=== PATIENT | female | born 1985 | race Hispanic/Latino ===

== ENCOUNTER 2018-04-11 20:19 | Emergency (ER) | payer OTHER, SELFPAY ==
[2018-04-11 20:32] VITALS: BP 116/82; PULSE 68; RESP 18; TEMP 36.2; O2SAT 100; BMI 22.3
--- NOTE | 2018-04-11 21:32 | ED_ITS ---
HPI - Chest Pain General Chief Complaint: Chest Pain Stated Complaint: CHEST PAINS, ANXIETY Time Seen by Provider: 04/11/18 21:11 Source: patient Mode of arrival: ambulatory Limitations: no limitations History of Present Illness HPI narrative: Patient is a 32-year-old female presenting with left-sided chest pain. She and her have been arguing a lot over the past couple of days. She noticed something yesterday. Today she picked up her 6-month-old son who she picked up a little bit funny she did not have pain immediately however they were arguing again and she started to notice pain. Pain is definitely worse when she moves her left arm. She has no shortness of breath she had no cramping in her hands no nausea or diaphoresis. The pain has improved. MD complaint: chest pain Duration: intermittent Relieving factors: remaining still Exacerbating factors: movement Related Data Home Medications Medication Instructions Recorded Confirmed No Known Home Medications 04/11/18 04/11/18 Allergies Allergy/AdvReac Type Severity Reaction Status Date / Time No Known Allergies Allergy Uncoded 04/11/18 20:35 Review of Systems Review of Systems All systems reviewed & are unremarkable except as noted in HPI and below Constitutional Denies chills, Denies fever(s), Denies lethargy and Denies weakness Cardiovascular Reports as per HPI, Denies dyspnea and Denies dyspnea on exertion Respiratory Denies cough, Denies dyspnea, Denies dyspnea on exertion and Denies wheezing Gastrointestinal Gastrointestinal: Denies abdominal pain, Denies change in bowel habits, Denies diarrhea, Denies nausea and Denies vomiting Musculoskeletal Denies back pain, Denies muscle weakness, Denies numbness and Denies tingling Neurologic Denies numbness, Denies tingling and Denies weakness Allergic/Immunologic Denies wheezing REPLACED BY [facility] Medical History Multiple sclerosis (Acute) Social History Smoking Status: Never smoker Exam Initial Vital Signs Initial Vital Signs: Vital Signs Temperature 97.2 F L 04/11/18 20:32 Pulse Rate 68 04/11/18 20:32 Respiratory Rate 18 04/11/18 20:32 Blood Pressure 116/82 H 04/11/18 20:32 Pulse Oximetry 100 04/11/18 20:32 Const General: cooperative and well developed Nutritional Appearance: well nourished Orientation: alert, awake, oriented x3 and not confused Chest Chest: normal inspection of the chest Resp Effort & Inspection: normal respiratory effort, able to speak in complete sentences, no respiratory distress and no use of accessory muscles Auscultation: clear to auscultation bilaterally, no rales, no rhonchi and no wheezes Cardio Rate: regular rate Rhythm: regular rhythm Heart Sounds: no click, no gallops, no murmurs and no rubs Pulses: normal peripheral pulses Other: Pain is reproduced with left arm movement Skin General: no rashes or lesions noted, No jaundice and No petechiae Neuro General: alert, oriented x3, gait normal and no focal motor deficits Speech: speech normal Course Vital Signs - 8 hr 04/11/18 20:32 04/11/18 21:36 Temperature 97.2 F L Pulse Rate 68 64 Respiratory Rate 18 13 Blood Pressure 116/82 H Blood Pressure [Right Arm] 113/79 Pulse Oximetry 100 99 MDM - Chest Pain ECG Data Attestation: I personally reviewed and interpreted this ECG as follows: Prior ECG tracings: available for review Interpretation: Normal sinus rhythm rate [address]-T changes similar to previous EKG MDM Narrative Medical decision making narrative: Patient is doing much better. We did discuss a chest x-ray for more of a workup however she declines at this time her rather just go home. She is not short of breath no trauma or injury. She says she feels safe going home. Discharge Plan Departure Patient Disposition: Home, Self-Care Clinical Impression: Atypical chest pain Discharge Date/Time: 04/11/18 21:44 Interventions: ED Discharge Assessment Last Done: 04/11/18 21:43 Instructions: DI for Atypical Chest Pain Activity Restrictions/Additional Instructions: *You have been diagnosed with atypical chest pain *What to do: Rest *Continue to take medications as directed *Follow up with your primary care provider in 2-3 days *Return to ER if you should have any new, worsening or concerning symptoms Prescriptions: No Action No Known Home Medications RF: 0 Referrals: [facility] [Outside] Provider,Conversion [Non-Staff] -
[2018-04-11 21:36] VITALS: BP 113/79; PULSE 64; RESP 13; O2SAT 99
== END 2018-04-11 21:44 | disposition home or self-care (01) ==
PROVIDERS: Emergency Provider Emergency Medicine
DX: R07.89 Other chest pain (principal)
CPT/HCPCS: 93005; 93041; 99283

== ENCOUNTER 2019-04-15 13:26 | Emergency (ER) | payer OTHER, SELFPAY ==
--- NOTE | 2019-04-15 13:27 | PC.NURSE ---
pt insist to use bathroom prior to triage, and nurse evaluation.
--- NOTE | 2019-04-15 13:33 | DI.RAD.S_ITS ---
PROCEDURE: XR CHEST 2V INDICATIONS: chest pain TECHNIQUE: 2 views of the chest were acquired. COMPARISON: [facility], , CHEST 2 VIEW, 12/26/2017, 20:20. FINDINGS: Surgical changes and devices: None. Lungs and pleura: Lungs are clear. No pleural effusions or pneumothorax. Mediastinum: Mediastinal contours are normal. Heart size is normal. Bones and chest wall: No suspicious bony abnormalities. Soft tissues appear unremarkable. IMPRESSION: No acute process. Dictated by: Elis Yusuf M.D. on 04/15/2019 at 14:09 Approved by: Elis Yusuf M.D. on 04/15/2019 at 14:09
[2019-04-15 13:34] VITALS: BP 104/70; PULSE 70; RESP 16; TEMP 37.2; O2SAT 100; BMI 20.6
[2019-04-15 14:03] LABS: Add Manual Diff / Slide Review NO; Basophils Absolute Auto 0 /uL (0-100); Basophils Percent Auto 0.7 % (0-2); Eosinophils Absolute Auto 200 /uL (0-450); Eosinophils Percent Auto 3.7 % (2-4); Hematocrit 40.8 % (36-46); Hemoglobin 14.2 g/dL (12.0-16.0); Lymphocytes Absolute Auto 2000 /uL (1100-4500); Lymphocytes Percent Auto 32.3 % (25-40); Mean Corpuscular HGB Conc 34.7 % (30-36); Mean Corpuscular Volume 89.4 fL (80-100); Monocytes Absolute Auto 500 /uL (0-900); Monocytes Percent Auto 8.1 % (3-14); Neutrophils Absolute Auto 3400 /uL (1500-7000); Neutrophils Percent Auto 55.2 % (50-75); Platelet Count 215 X10^3/uL (150-400); Red Blood Cell Count 4.56 X10^6/uL (4.0-5.2); Red Cell Distribution Width 12.9 % (11.6-14.8); White Blood Cell Count 6.1 X10^3/uL (4.5-11.0)
[2019-04-15 14:11] LABS: INR 1.1 (0.9-1.3); Prothrombin Time 12.3 SECONDS (10.1-12.7)
[2019-04-15 14:13] LABS: PTT Partial Thromboplastin Tim 35 SECONDS (26.4-36.2)
[2019-04-15 14:16] LABS: Alanine Aminotransferase 17 IU/L (9-52); Albumin 4.3 g/dL (3.5-5.0); Albumin Globulin Ratio 1.4 (1.0-2.8); Alkaline Phosphatase 64 U/L (38-126); Aspartate Aminotransferase 24 IU/L (14-36); Blood Urea Nitrogen 18 mg/dL (7-17); Calcium 9.1 mg/dL (8.4-10.2); Carbon Dioxide 28 mmol/L (22-32); Chloride 102 mmol/L (98-107); Creatine Kinase 57 U/L (30-135); Estimated Glomerular Filt Rate > 60.0 mL/min (>60); Globulin 3.1 g/dL (1.7-4.1); Glucose 82 mg/dL (70-100); HEMOLYSIS < 15 (0-50); Lipase 118 U/L (23-300); Potassium 3.2 mmol/L (3.4-5.1); Sodium 138 mmol/L (137-145); Total Protein 7.4 g/dL (6.3-8.2)
[2019-04-15 14:28] LABS: Troponin I < 0.012 ng/mL (0.01-0.034)
[2019-04-15 14:30] VITALS: BP 107/67; PULSE 69; RESP 15; O2SAT 100
[2019-04-15 15:00] VITALS: BP 108/66; PULSE 73; RESP 15; O2SAT 100
--- NOTE | 2019-04-15 15:18 | ED.CHESTPAIN ---
HPI - Chest Pain <Ayanna Macias PA-C - Last Filed: 04/15/19 20:56> General Chief Complaint: Chest Pain Stated Complaint: heart palps/sharp pains x30 minutes Time Seen by Provider: 04/15/19 15:09 Source: patient Mode of arrival: ambulatory Limitations: no limitations History of Present Illness HPI narrative: This 33-year-old female comes to ED due to heart palpitations earlier. She states that this started suddenly, where she felt 3 pounding beats, stopped for a few minutes, then 4 pounding beats. She states that this happened again an hour later, and happen 6 or 7 times, last she thinks right before EKG was done here. She states that she had a brief, stabbing episode of chest pain 3 days ago that resolved immediately. She has not had any other chest pain. She does not have dyspnea. She has not had any nausea or vomiting nor abdominal pain. She felt briefly dizzy before 1 of the episodes of palpitations, not others. She has not had any recent illness, cough or upper respiratory symptoms, or fever. She denies any urinary symptoms, bowel habit changes or possibility of . She states that she is feeling considerably better now and has not had recurrent symptoms. She does have a history of occasional panic attacks but states this felt much different Related Data Home Medications Medication Instructions Recorded Confirmed glatiramer [Glatopa] 04/15/19 Allergies Allergy/AdvReac Type Severity Reaction Status Date / Time No Known Drug Allergies Allergy Verified 04/15/19 13:34 Review of Systems <Ayanna Macias PA-C - Last Filed: 04/15/19 20:56> Review of Systems ROS Unobtainable: All systems reviewed & are unremarkable except as noted in HPI and below PFSH <Ayanna Macias PA-C - Last Filed: 04/15/19 20:56> Medical History (Updated 04/15/19 @ 15:46 by Ayanna Macias PA-C) History of panic attacks (Chronic) Multiple sclerosis (Chronic) Surgical History (Updated 04/15/19 @ 15:46 by Ayanna Macias PA-C) Status post LASIK surgery (Resolved) Status post breast augmentation (Resolved) Social History Smoking Status: Never smoker Social History Smoking Status: Never smoker Exam <Ayanna Macias PA-C - Last Filed: 04/15/19 20:56> Narrative Exam Narrative: GENERAL APPEARANCE: Patient sitting comfortably, in no distress. HEENT: PERRL, EOMI NECK/THYROID: Neck supple, no JVD. LUNGS: Clear to auscultation bilaterally. HEART: Regular rate and rhythm without murmur, normal S1, S2, no S3 or S4. Auscultated supine and sitting ABDOMEN: Soft, NT, ND, + BS x 4 quadrants EXTREMITIES: No cyanosis or edema NEUROLOGIC: Alert and oriented, normal speech, and coordination. Initial Vital Signs Initial Vital Signs: Vital Signs Temperature 99.0 F 04/15/19 13:34 Pulse Rate 70 04/15/19 13:34 Respiratory Rate 16 04/15/19 13:34 Blood Pressure 104/70 04/15/19 13:34 Pulse Oximetry 100 04/15/19 13:34 <Sanam Mills DO - Last Filed: 04/19/19 19:12> Initial Vital Signs Initial Vital Signs: Vital Signs Temperature 99.0 F 04/15/19 13:34 Pulse Rate 70 04/15/19 13:34 Respiratory Rate 16 04/15/19 13:34 Blood Pressure 104/70 04/15/19 13:34 Pulse Oximetry 100 04/15/19 13:34 Course <Ayanna Macias PA-C - Last Filed: 04/15/19 20:56> Additional Information: Patient's symptoms have resolved at the time of visit and she is feeling well. Advised return if any acutely worsening symptoms, follow-up with PCP this week for consideration of further cardiac evaluation/monitoring. Advised of slightly low potassium and she states she has not been eating as much produce as she usually does, will resume her usual diet and follow-up with PCP as well. I think this is unlikely to be causing her brief symptoms today. She is agreeable with plan Orders Ordered: ED Orders 04/15/19 13:33 XR chest 2V Stat EKG-12 Lead Stat 04/15/19 13:52 Complete Blood Count AUTO DIFF Stat Comprehensive Metabolic Panel Stat Lipase Stat Partial Thromboplastin Time Stat Prothrombin Time INR Stat Troponin & CK Cardiac Panel Stat Vital Signs - 8 hr 04/15/19 13:34 04/15/19 14:30 04/15/19 15:00 Temperature 99.0 F Pulse Rate 70 69 73 Respiratory Rate 16 15 15 Blood Pressure 104/70 Blood Pressure [Left Arm] 107/67 108/66 Pulse Oximetry 100 100 100 04/15/19 15:57 Temperature Pulse Rate 75 Respiratory Rate 22 Blood Pressure 107/75 Blood Pressure [Left Arm] Pulse Oximetry 98 <Sanam Mills DO - Last Filed: 04/19/19 19:12> Orders Ordered: ED Orders 04/15/19 13:33 XR chest 2V Stat EKG-12 Lead Stat 04/15/19 13:52 Complete Blood Count AUTO DIFF Stat Comprehensive Metabolic Panel Stat Lipase Stat Partial Thromboplastin Time Stat Prothrombin Time INR Stat Troponin & CK Cardiac Panel Stat Vital Signs - 8 hr 04/15/19 13:34 04/15/19 14:30 04/15/19 15:00 Temperature 99.0 F Pulse Rate 70 69 73 Respiratory Rate 16 15 15 Blood Pressure 104/70 Blood Pressure [Left Arm] 107/67 108/66 Pulse Oximetry 100 100 100 04/15/19 15:57 Temperature Pulse Rate 75 Respiratory Rate 22 Blood Pressure 107/75 Blood Pressure [Left Arm] Pulse Oximetry 98 MDM - Chest Pain <Ayanna Macias PA-C - Last Filed: 04/15/19 20:56> Lab Data Attestation: I reviewed the patient's lab results. Result diagrams: 04/15/19 13:52 04/15/19 13:52 Lab Results 04/15/19 04/15/19 04/15/19 Range/Units 13:52 13:52 13:52 WBC 6.1 (4.5-11.0) X10^3/uL RBC 4.56 (4.0-5.2) X10^6/uL Hgb 14.2 (12.0-16.0) g/dL Hct 40.8 (36-46) % MCV 89.4 (80-100) fL MCH 31.0 (26-34) PG MCHC 34.7 (30-36) % RDW 12.9 (11.6-14.8) % Plt Count 215 (150-400) X10^3/uL Neut % (Auto) 55.2 (50-75) % Lymph % (Auto) 32.3 (25-40) % [place] % (Auto) 8.1 (3-14) % Eos % (Auto) 3.7 (2-4) % Baso % (Auto) 0.7 (0-2) % Neut # (Auto) 3400 (9847-9412) /uL Lymph # (Auto) 2000 (0693-6504) /uL [place] # (Auto) 500 (0-900) /uL Eos # (Auto) 200 (0-450) /uL Baso # (Auto) 0 (0-100) /uL PT 12.3 (10.1-12.7) SECONDS INR 1.1 (0.9-1.3) APTT 35 (26.4-36.2) SECONDS Sodium 138 (137-145) mmol/L Potassium 3.2 L (3.4-5.1) mmol/L Chloride 102 (98-107) mmol/L Carbon Dioxide 28 (22-32) mmol/L BUN 18 H (7-17) mg/dL Creatinine 0.60 (0.52-1.04) mg/dL Estimated GFR > 60.0 (>60) mL/min BUN/Creatinine Ratio 30.0 H (6-22) Glucose 82 (70-100) mg/dL Calcium 9.1 (8.4-10.2) mg/dL Total Bilirubin 2.0 H (0.2-1.3) mg/dL AST 24 (14-36) IU/L ALT 17 (9-52) IU/L Alkaline Phosphatase 64 (38-126) U/L Total Creatine Kinase 57 (30-135) U/L CK-MB (CK-2) TNP CK-MB (CK-2) Rel Index TNP Troponin I < 0.012 (0.01-0.034) ng/mL Total Protein 7.4 (6.3-8.2) g/dL Albumin 4.3 (3.5-5.0) g/dL Globulin 3.1 (1.7-4.1) g/dL Albumin/Globulin Ratio 1.4 (1.0-2.8) Lipase 118 (23-300) U/L Imaging Data Chest x-ray: Radiologist's impression: [address] [address] XRay Report Signed Patient: Elsy Toro HMR#: [id number] : 1985Acct:[id number] Age/Sex: 33 / FDate of Service: 04/15/19 Loc: ED Accession Number: [id number] Procedure: XR chest 2V Ordering Provider: Sanam Mills D.O. PROCEDURE: XR CHEST 2V INDICATIONS: chest pain TECHNIQUE: 2 views of the chest were acquired. COMPARISON: [facility], , CHEST 2 VIEW, 12/26/2017, 20:20. FINDINGS: Surgical changes and devices: None. Lungs and pleura: Lungs are clear. No pleural effusions or pneumothorax. Mediastinum: Mediastinal contours are normal. Heart size is normal. Bones and chest wall: No suspicious bony abnormalities. Soft tissues appear unremarkable. IMPRESSION: No acute process. Dictated by: Elis Yusuf M.D. on 04/15/2019 at 14:09 Approved by: Elis Yusuf M.D. on 04/15/2019 at 14:09 ECG Data Attestation: I personally reviewed and interpreted this ECG as follows: (Normal sinus rhythm, rate 70, normal axis) Prior ECG tracings: available for review <Sanam Mills, - Last Filed: 04/19/19 19:12> Lab Data Lab Results 04/15/19 04/15/19 04/15/19 Range/Units 13:52 13:52 13:52 WBC 6.1 (4.5-11.0) X10^3/uL RBC 4.56 (4.0-5.2) X10^6/uL Hgb 14.2 (12.0-16.0) g/dL Hct 40.8 (36-46) % MCV 89.4 (80-100) fL MCH 31.0 (26-34) PG MCHC 34.7 (30-36) % RDW 12.9 (11.6-14.8) % Plt Count 215 (150-400) X10^3/uL Neut % (Auto) 55.2 (50-75) % Lymph % (Auto) 32.3 (25-40) % [place] % (Auto) 8.1 (3-14) % Eos % (Auto) 3.7 (2-4) % Baso % (Auto) 0.7 (0-2) % Neut # (Auto) 3400 (4473-1332) /uL Lymph # (Auto) 2000 (9853-8749) /uL [place] # (Auto) 500 (0-900) /uL Eos # (Auto) 200 (0-450) /uL Baso # (Auto) 0 (0-100) /uL PT 12.3 (10.1-12.7) SECONDS INR 1.1 (0.9-1.3) APTT 35 (26.4-36.2) SECONDS Sodium 138 (137-145) mmol/L Potassium 3.2 L (3.4-5.1) mmol/L Chloride 102 (98-107) mmol/L Carbon Dioxide 28 (22-32) mmol/L BUN 18 H (7-17) mg/dL Creatinine 0.60 (0.52-1.04) mg/dL Estimated GFR > 60.0 (>60) mL/min BUN/Creatinine Ratio 30.0 H (6-22) Glucose 82 (70-100) mg/dL Calcium 9.1 (8.4-10.2) mg/dL Total Bilirubin 2.0 H (0.2-1.3) mg/dL AST 24 (14-36) IU/L ALT 17 (9-52) IU/L Alkaline Phosphatase 64 (38-126) U/L Total Creatine Kinase 57 (30-135) U/L CK-MB (CK-2) TNP CK-MB (CK-2) Rel Index TNP Troponin I < 0.012 (0.01-0.034) ng/mL Total Protein 7.4 (6.3-8.2) g/dL Albumin 4.3 (3.5-5.0) g/dL Globulin 3.1 (1.7-4.1) g/dL Albumin/Globulin Ratio 1.4 (1.0-2.8) Lipase 118 (23-300) U/L Discharge Plan Departure Patient Disposition: Home Clinical Impression: Heart palpitations Discharge Date/Time: 04/15/19 15:59 Interventions: ED Discharge Assessment Last Done: 04/15/19 15:57 Instructions: DI for Palpitations Activity Restrictions/Additional Instructions: You can return home since you are the feeling well now. The source of your palpitations was not clear today. There were not any changes on your EKG or on the heart monitor, and on exam your heart seemed normal. Since all of this was when you are not having symptoms, it is important that you follow-up with your PCP in the next couple of days as we talked about, so that you can discuss further testing, potentially with a heart monitor that you can wear longer-term to record symptoms. You need to the ED as we discussed if you have any acutely worsening symptoms again. Your potassium was a little bit on the low side as we talked about, probably due to you eating less greens and fruits, which are potassium rich foods. Please eat some banana when you get home, and citrus and dark greens are also a good source. You can recheck this with your PCP as well. Prescriptions: No Action glatiramer [Glatopa] 40 mg/mL syringe RF: 0 Referrals: [facility] [Provider Group] <Sanam Mills DO - Last Filed: 04/19/19 19:12> Cosign ED Attending Mandyature Attestation: I was immediately available in the department for consultation, lab work, chest x-ray, ekg reviewed. This documentation has been reviewed and I agree with assessment and plan. Supervised by Sanam iMlls DO
--- NOTE | 2019-04-15 15:37 | PC.NURSE ---
patient says she feels so much better , rested and would like to be discharged soon No more palpatations or chest discomfort. Preparing for discharge.
[2019-04-15 15:57] VITALS: BP 107/75; PULSE 75; RESP 22; O2SAT 98
== END 2019-04-15 15:59 | disposition home or self-care (01) ==
PROVIDERS: Emergency Medicine; Emergency Provider Internal Medicine
DX: R00.2 Palpitations (principal); R07.89 Other chest pain
CPT/HCPCS: 36591; 71046; 80053; 82550; 83690; 84484; 85025; 85610; 85730; 93005; 99283; 99285